=== PATIENT | female | born 1985 | race Two or more races ===

== ENCOUNTER 2021-10-18 10:38 | Emergency (ER) | payer MEDICAID, OTHER ==
[~2021-10-18] VITALS: Ht 165.1 cm; Wt 90.0 kg
[2021-10-18 10:58] VITALS: BP 111/80
[2021-10-18] MEDS ORDERED: CIP03OS RIGHTEYE (12:53)
== END 2021-10-18 13:14 | disposition home or self-care (01) ==
LOC: ER 10:38
DX: H11.31 Conjunctival hemorrhage, right eye (principal)